=== PATIENT | female | born 1960 | race Two or more races ===

== ENCOUNTER 2017-08-28 18:50 | Emergency (ER) | payer OTHER ==
[~2017-08-28] VITALS: Ht 157.5 cm; Wt 67.1 kg
[~2017-08-28 18:50] MED LIST: IBUP200C5 PO
[2017-08-28 19:59] VITALS: BP 155/93
[2017-08-28] MEDS ORDERED: ACETAMINOPHEN ES 500 MG TABLET ONE (20:19)
[2017-08-28] MEDS ORDERED: ACETAMINOPHEN ES 500 MG TABLET PO ONE ×2 (20:30→22:00)
--- NOTE | 2017-08-28 20:52 | NUR ---
RADIOLOGY AT BEDSIDE FOR XR.
--- NOTE | 2017-08-28 21:36 | NUR ---
DR. CORREA AT BEDSIDE SPEAKING TO PT REGARDING RESULTS.
== END 2017-08-28 21:39 | disposition home or self-care (01) ==
LOC: ER 18:54
DX: M79.602 Pain in left arm (principal); I10 Essential (primary) hypertension
CPT/HCPCS: 73060; 99284; A4606; Z7610